=== PATIENT | male | born 1960 | race Caucasian/White ===

== ENCOUNTER 2019-07-27 16:20 | Emergency (ER) | payer OTHER ==
[~2019-07-27] VITALS: Ht 188 cm; Wt 85.7 kg
[2019-07-27 16:29] VITALS: Ht 188 cm; Wt 85.7 kg
[2019-07-27 17:22] LABS: PLATELET COUNT 272 x10^3mcL (130-400); RED CELL DISTRIBUTION WIDTH 13.8 % (11.5-14.5)
[2019-07-27 17:46] LABS: UA SPECIFIC GRAVITY 1.015 (1.005-1.035); microscopic required? YES; urine erythrocyte 3+ (NEGATIVE)
[2019-07-27 17:59] LABS: BAND NEUTROPHIL 8 % (0-10); BASOPHIL 0 % (0-2); MONOCYTE 1 % (0-7); SEGMENTED NEUTROPHILS 86 % (37-75)
[2019-07-27 18:01] LABS: PLATELET MORPHOLOGY PLATELETS NORMAL; rbc morphology (normal/abnorm) NORMAL (NORMAL)
[2019-07-27 18:08] VITALS: BP 107/80
[2019-07-27 18:30] LABS: ALKALINE PHOSPHATASE 73 U/L (46-116); ALT/SGPT 35 U/L (16-63); AST/SGOT 28 U/L (15-37); BILIRUBIN TOTAL 0.6 mg/dL (0.20-1.00); C REACTIVE PROTEIN 9.6 mg/dL (<=0.9); CALCIUM 8.4 mg/dL (8.5-10.1); CARBON DIOXIDE 24.3 mmol/L (21-32); CREATININE SERUM 0.9 mg/dL (0.7-1.3); GFR1 > 60 mL/min; GLUCOSE SERUM 117 mg/dL (74-106)
[2019-07-27 18:50] LABS: ALBUMIN 3.2 g/dL (3.4-5.0); SODIUM SERUM 137 mmol/L (136-145); TOTAL PROTEIN, SERUM 8.8 g/dL (6.4-8.2)
[2019-07-27 18:51] LABS: CHLORIDE SERUM 103 mmol/L (98-107); POTASSIUM SERUM 3.7 mmol/L (3.5-5.1)
== END 2019-07-27 19:13 | disposition home or self-care (01) ==
LOC: ED 16:20
PROVIDERS: Emergency Medicine
DX: N39.0 Urinary tract infection, site not specified (principal); G61.81 Chronic inflammatory demyelinating polyneuritis; Z88.8 Allergy status to other drugs, medicaments and biological substances; Z88.1 Allergy status to other antibiotic agents
CPT/HCPCS: 36415; J0696; Q0092